=== PATIENT | male | born 1975 ===

== ENCOUNTER 2017-06-07 18:01 | Outpatient (CLI) | payer OTHER ==
[~2017-06-07] VITALS: Ht 152.4 cm; Wt 122.5 kg
[2017-06-07] MEDS ORDERED: SYNTHROID200 MCG (18:31)
[2017-06-07] MEDS ORDERED: TENORMIN50 MG (18:31)
== END 2017-06-07 18:20 | disposition home or self-care (01) ==
LOC: PPHC 18:01
DX: Z00.8 Encounter for other general examination (principal)